=== PATIENT | female | born 1965 | race American Indian/Alaskan Native ===

== ENCOUNTER 2017-08-25 06:06 | Day surgery (SDC) | payer OTHER ==
[~2017-08-25 06:06] MED LIST: ANCEF/STERILE WATER 2 GM/20 ML IV NR; NACL 0.9% 1000 ML 1,000 ML IV SCH; PEPCID PO NR; VERSED IV NR
--- NOTE | 2017-08-25 07:28 | Anesthesia Day of Surgery ---
Anesthesia Day of Surgery - Day of Surgery Patient Examined: Yes Patient H&P Reviewed: Yes Patient is NPO: Yes
--- NOTE | 2017-08-25 07:28 | Anesthesia Consultation ---
Anesthesia Consult and Med Hx Date of service: 08/25/17 - Airway Anesthetic Teeth Evaluation: Good (LOOSE FRONT TOOTH) ROM Head & Neck: Adequate Mental/Hyoid Distance: Adequate Mallampati Class: Class II Intubation Access Assessment: Probably Good - Pulmonary Exam CTA: Yes - Cardiac Exam Cardiac Exam: RRR - Pre-Operative Health Status ASA Pre-Surgery Classification: ASA3 Proposed Anesthetic Plan: General - Pulmonary Hx Smoking: Yes ( MARIJUANA- jul 24 about the last time smoked) - Cardiovascular System Hx Hypertension: Yes Hx Heart Attack/AMI: Yes (LIGHT HEART ATTACK 3 YRS AGO) Hx Angina: Yes - Endocrine Hx Non-Insulin Dependent Diabetes: Yes - Other Systems Hx Cancer: No
[2017-08-25] MEDS ORDERED: DIPRIVAN 10 MG/ML IV ONE (07:34)
[2017-08-25] MEDS ORDERED: SUBLIMAZE ONE (07:34)
[2017-08-25] MEDS ORDERED: ZOFRAN ONE (07:35)
[2017-08-25] MEDS ORDERED: XYLOCAINE MPF 2% ONE (07:35)
[2017-08-25] MEDS ORDERED: ROBINUL ONE ×2 (07:35)
[2017-08-25] MEDS ORDERED: DECADRON ONE (07:35)
[2017-08-25] MEDS ORDERED: ZEMURON IV ONE (07:35)
[2017-08-25] MEDS ORDERED: NEOSTIGMINE ONE (07:35)
[2017-08-25] MEDS ORDERED: MARCAINE-EPI/PF 0.5%-1:200,000 INFILTRATI ONE (08:07)
[2017-08-25] MEDS ORDERED: DILAUDID ONE (08:14)
[2017-08-25] MEDS ORDERED: NACL 0.9% IR ONE (08:17)
[2017-08-25] MEDS ORDERED: NORMODYNE IV ONE (08:28)
--- NOTE | 2017-08-25 09:05 | Operative Report ---
Operative Report Operative Report: Date of procedure: 08/25/2017 Pre-operative diagnosis: Biliary dyskinesia Post-operative diagnosis: Same Procedure name(s): Laparoscopic cholecystectomy Surgeon: Harvinder Vincent MD Data Acquisition Technician: Everardo Swanson M.D. Anesthesia: General EBL: Minimal Complications: None Instrument Count: correct Indications: This is a 52-year-old female with a history of right upper quadrant pain. Workup was consistent with a biliary etiology. The risks and benefits discussed and all questions answered. She was subsequently brought to the OR. Findings: As above Procedure: We reviewed the informed consent. We placed the patient supine upon the table. After adequate anesthesia was reached, the patient was prepped and draped in usual sterile fashion. A 5 mm incision was made the level of umbilicus and a Veress needle was placed at this position. The abdomen was then insufflated to 15 mmHg and a 5 mm trocar was placed through the umbilical incision. We inserted the camera at this time. Under direct vision and after infiltration of local anesthetic an 11 mm port was placed in the epigastric location. This was followed by placement of two five mm ports in the right upper quadrant. We identified the gallbladder and the fundus was grasped. This was retracted superiorly. We then grasped the infundibulum and retracted it laterally. At this time we dissected free the cystic duct infundibular junction until the triangle of Calot was clearly identified. We placed 3 clips proximally on the cystic duct, 2 distally. We placed 2 clips proximally on the cystic artery. We transected the cystic duct sharply. We transected the cystic artery using electrocautery. We then dissected the gallbladder free from its fossa using electrocautery. This was placed in Endo Catch bag and removed the abdomen to be sent to pathology for further evaluation. We assured hemostasis at this time. We then evacuated the insufflation. We removed all ports and closed all port sites using a 4-0 Monocryl in a subcuticular fashion. The wounds were bandaged sterilely. The patient tolerated procedure well. They were taken to PACU in no apparent distress after extubation.
--- NOTE | 2017-08-25 09:08 | Short Stay Summary ---
Short Stay Documentation Date of service: 08/25/17 - History H&P: dictated - Allergies and Medications Current Medications: Allergies No Known Allergies Allergy (Verified 08/19/17 17:01) Home Medications Medication Instructions Recorded Confirmed Last Taken Type metFORMIN [Glucophage] 850 mg PO DAILY 07/28/17 08/25/17 08/24/17 History Losartan/Hydrochlorothiazide 1 each PO DAILY 08/19/17 08/25/17 08/25/17 04:35 History [Losartan-Hctz 50-12.5 mg Tab] Active Medications Cefazolin Sodium (Ancef/Sterile Water 2 Gm/20 Ml) 2 gm IV PREOP NR Stop: 08/26/17 23:59 Famotidine (Pepcid) 20 mg PO PREOP NR Stop: 08/25/17 21:00 Last Admin: 08/25/17 06:51 Dose: 20 mg Sodium Chloride (Nacl 0.9% 1000 Ml) 1,000 mls @ 75 mls/hr IV DIRECT RUFUS Last Admin: 08/25/17 07:20 Dose: 75 mls/hr Midazolam HCl (Versed) 2 mg IV PREOP NR Stop: 08/25/17 23:59 Last Admin: 08/25/17 07:31 Dose: 2 mg - Brief post op/procedure progress note Date of procedure: 08/25/17 Pre-op diagnosis: biliary dyskinesia Post-op diagnosis: same Procedure: Laparoscopic cholecystectomy Anesthesia: GETA Findings: As above Surgeon: ELIDA RICHARD Member Services Representative: ROYA CURTIS Estimated blood loss: minimal Pathology: list (gallbladder) Specimen disposition: to lab Condition: stable - Disposition Condition at discharge: Stable Disposition: DC-01 TO HOME OR SELFCARE Short Stay Discharge Plan Activity: no restrictions Diet: low fat Wound: keep clean and dry Follow up with: JUS NETTLES MD [Primary Care Provider] - 7 Days ELIDA RICHARD MD [Staff Physician] - 7 Days Prescriptions: oxyCODONE /ACETAMINOPHEN [Percocet 5/325] 1 tab PO Q6HR PRN #30 tablet PRN Reason: Pain
[2017-08-25] MEDS: DILAUDID IV PRN ×4 (09:12→09:50)
[2017-08-25] MEDS ORDERED: TORADOL IV PRN (10:00)
[2017-08-25] MEDS ORDERED: PERCOCET 5/325 PO PRN (11:00)
[2017-08-25 14:36] VITALS: BP 113/67
== END 2017-08-25 12:40 | disposition home or self-care (01) ==
LOC: OR 06:06 → EDSEX 13:00
PROVIDERS: ATTEND Surgery
DX: K81.1 Chronic cholecystitis (principal); K82.8 Other specified diseases of gallbladder; I10 Essential (primary) hypertension; I34.0 Nonrheumatic mitral (valve) insufficiency; E11.9 Type 2 diabetes mellitus without complications; Z90.710 Acquired absence of both cervix and uterus
CPT/HCPCS: 36415; 47562; 82962; 84132; 88304; J0690; J1100; J1170; J1885; J2250; J2405; J2704; J2710; J3010; J7030